=== PATIENT | male | born 1975 | race Caucasian/White ===

== ENCOUNTER 2024-12-13 12:08 | Day surgery (SDC) | payer OTHER, SELFPAY ==
--- NOTE | 2024-12-13 | PATH_ITS ---
[facility] Accession Number: [id number] No. of containers..01 Tissue . 01 Material submitted: . colon - CECAL POLYP . 01 Diagnosis: CECAL POLYP: Tubular adenoma. STO 12/24/2024 1257 Local . 01 Electronically signed: . Bryant Grimes MD, Pathologist NPI- [id number] . 01 Gross description: . CECAL POLYP: Received in formalin is 1 fragment(s) of solis, soft tissue measuring 0.7 x 0.5 x 0.3 cm submitted entirely in 1 cassette(s) /SANDRA 12/24/2024 1257 Local . 01 Pathologist provided ICD-10: D12.0 . 01 CPT . 694317 Specimen Comment: A courtesy copy of this report has been sent to [phone] Performed at: [address] [id number] MD Bryant Grimes MD Phone: [phone]
[2024-12-13] MEDS: LACTATED RINGERS 1,000 ML 42 ML IV (12:20)
--- NOTE | 2024-12-13 13:17 | P.HP_ITS ---
History of Present Illness History of Present Illness Date Patient Seen: 12/13/24 Time Patient Seen: 13:17 Chief complaint: Colonoscopy Narrative: Will is a 49-year-old man who presents for a colonoscopy due to a history of a adenomatous polyp. This was removed in [place] 2-1/2 years ago. He was told to have another colonoscopy within 2 years. PFS Social History Smoking Status: Never smoker alcohol intake: current Meds Home Medications and Allergies Home Medications ?Medication ?Instructions ?Recorded ?Confirmed ?Type hydrochlorothiazide 12.5 mg capsule 12.5 mg PO DAILY 0 12/13/24 12/13/24 History Allergies Allergy/AdvReac Type Severity Reaction Status Date / Time No Known Drug Allergies Allergy Verified 12/13/24 12:21 Exam Const General: healthy appearing Assessment & Plan Assessment and plan (1) History of adenomatous polyp: Status: Acute Plan Colonoscopy Time-Based Coding :: [TOTAL MINUTES] spent with patient and on the chart (including review of chart, obtaining history, exam, reviewing outside data, placing orders, documenting exam and treatment plan, and counseling patient) on [DATE]. PROFEE Dialysis Chief Equipment Technician Document charge(s): No
--- NOTE | 2024-12-13 13:44 | PM.OP.COLON ---
Operative Date/Time/Diagnoses Date of procedure: 12/13/24 Time of procedure: 13:44 Pre-op diagnosis: History of adenomatous polyps Post-op diagnosis: same Procedure & Clinicians Study performed: Colonoscopy Same procedure(s) as scheduled: Yes Surgeon: Popeye Salas Anesthesia Type: MAC +/- Procedure Notes Procedure in detail: Surgeon: Popeye Salas MD Anesthesia: Marivel Clark CRNA Procedure: The patient was brought to the endoscopy suite, placed in left lateral decubitus position. The patient was connected to monitoring devices. A time-out was performed. Sedation was administered. Once the patient was adequately sedated, a digital rectal exam was performed and was normal. The scope was then inserted and advanced to the cecum where the appendiceal orifice was identified and photographed. The scope was then slowly withdrawn over greater than 6 minutes. The mucosa was thoroughly inspected. There was a 3 mm polyp in the cecum removed with a cold snare. The scope was retroflexed in the rectum. No other abnormalities were seen. The scope was straightened and removed. The patient was awakened and brought to recovery. Scope withdrawal time: 8 minutes Sedation time: 12 minutes EBL: 2 mL Findings: 3 mm cecal polyp Post-procedure Disposition: PACU
[2024-12-13 13:49] VITALS: BP 125/76; PULSE 49; RESP 15; TEMP 36.4; O2SAT 98
[2024-12-13 13:55] VITALS: BP 124/72; PULSE 46; RESP 14; TEMP 36.4; O2SAT 98
[2024-12-13 14:11] VITALS: BP 133/79; PULSE 45; RESP 16; TEMP 36.2; O2SAT 98
== END 2024-12-13 14:20 | disposition home or self-care (01) ==
PROVIDERS: PCP Physician Assistant; Referring Provider Surgery; Visit Provider Surgery
PROC: 0DJD8ZZ Inspection of Lower Intestinal Tract, Via Natural or Artificial Opening Endoscopic (ICD-10-PCS; CPT 45378; principal; 2024-12-13 13:30)
DX: Z12.11 Encounter for screening for malignant neoplasm of colon (principal); Z86.0101 Personal history of adenomatous and serrated colon polyps; D12.0 Benign neoplasm of cecum
CPT/HCPCS: 45385; J2704